=== PATIENT | female | born 1965 ===

== ENCOUNTER 2016-08-29 04:34 | Emergency (ER) | payer BC ==
[~2016-08-29] VITALS: Ht 170.2 cm; Wt 77.1 kg
[2016-08-29] MEDS ORDERED: NKM (04:42)
[2016-08-29] MEDS ORDERED: ACETAMINOPHEN-1 EAC1 ORAL (05:30)
[2016-08-29] MEDS ORDERED: IBUPROFEN600 MG ORAL (05:30)
[2016-08-29 05:33] VITALS: BP 123/69
--- NOTE | 2016-08-29 10:40 | Diagnostic Imaging Report ---
History: Pain status post fall. Technique: Frontal, lateral, and oblique views of the left wrist are provided. Comparison: No prior study is available for comparison. Findings: Overall bony mineralization is within normal limits. There is no evidence of acute fracture or dislocation. No significant erosive or arthritic change is noted. The soft tissues appear grossly normal. No significant joint effusion is noted. Impression: No evidence of acute fracture or dislocation.
--- NOTE | 2016-08-29 21:08 | Emergency Room Report ---
History of Present Illness General Chief Complaint: Upper Extremity Injury Source: Patient Present Illness HPI 51-year-old female presents ED complaining of left wrist pain. patient states patient mechanical trip and fall. Patient landed on her outstretched left wrist. Denies hitting her head or LOC. Notes pain and swelling to the left wrist. 8/10, sharp, nonradiating. No other aggravating or relieving factors. Unable to flex or extend due to pain and swelling. Denies any other injuries. Denies any other associated symptoms Allergies: Coded Allergies: No Known Allergies (Unverified , 08/29/16) Patient History Past Medical History: none Past Surgical History: none Pertinent Family History: none Social History: Denies: alcohol use, drug use, smoking Now: No Immunizations: UTD Reviewed Nursing Documentation: PMH: Agreed, PSxH: Agreed Nursing Documentation-PMH Past Medical History: No Stated History Review of Systems All Other Systems: negative except mentioned in HPI Physical Exam Vital Signs Date Time Temp Pulse Resp B/P Pulse Ox O2 Delivery O2 Flow Rate FiO2 08/29/16 04:39 98.1 91 18 123/69 96 Room Air Sp02 EP Interpretation: reviewed, normal General Appearance: no apparent distress, alert, GCS 15, non-toxic Head: normocephalic Eyes: bilateral eye PERRL, bilateral eye normal inspection ENT: normal ENT inspection Neck: normal inspection Respiratory: normal inspection Cardiovascular #1: normal inspection Gastrointestinal: normal inspection Rectal: deferred Genitourinary: no CVA tenderness Musculoskeletal: swelling - L wrist Neurologic: alert, oriented x3, responsive, motor strength/tone normal, sensory intact, speech normal Psychiatric: normal inspection Skin: normal inspection Lymphatic: normal inspection Procedures Splinting Splinting : Consent: Verbal Pre-Made Type: velcro Splint: wrist Pre-Proc Neuro Vasc Exam: normal Post-Proc Neuro Vasc Exam: normal Patient Tolerated: Well Complications: None Medical Decision Making Diagnostic Impression: Primary Impression: Wrist injury Qualified Codes: S69.92XA - Unspecified injury of left wrist, hand and finger( s), initial encounter ER Course Hospital Course 51-year-old F presents to ED complaining of L wrist pain s/p trip and fall Differential diagnoses include: Fracture, dislocation, sprain, contusion Clinical course Patient placed on stretcher. After initial history and physical, I ordered pain medications and Xrays of L hand/wrist Xrays prelim read shows no acute fracture/dislocation. placed in velcro wrist splint Diagnosis - wrist injury Stable and discharged to home with prescription for Motrin, Tylenol #3. apply ice, keep elevated. weight bear as tolerated. Followup with PMD. Return to ED if symptoms recur or worsen Other X-Ray Diagnostic Results Other X-Ray Diagnostic Results : X-Ray Ordered: L hand, L wrist EP Interpretation: Yes Findings: no fractures, no dislocation, no soft tissue swelling Number of Views: 3 Other Impression Left hand-No fracture, no dislocation, no soft tissue swelling Left wrist-No fracture, no dislocation, no soft tissue swelling Last Vital Signs Date Time Temp Pulse Resp B/P Pulse Ox O2 Delivery O2 Flow Rate FiO2 08/29/16 05:33 98.1 89 18 123/69 96 Room Air Status: improved Disposition: HOME, SELF-CARE Condition: Stable Scripts Acetaminophen With Codeine (T#3) (TYLENOL #3 TAB*) Y Tab 1 TAB ORAL Q8H Y for For Pain, #20 TAB Prov: MELLY JACKMAN M.D. 08/29/16 Ibuprofen* (MOTRIN*) 600 Mg Tablet 600 MG ORAL Q8H Y for For Pain, #30 TAB 0 Refills Prov: MELLY JACKMAN M.D. 08/29/16 Patient Instructions: Wrist Splint, [id number] MELLY JACKMAN M.D. Aug 29, 2016 21:08
--- NOTE | 2016-08-30 08:42 | Diagnostic Imaging Report ---
History: Pain status post fall. Technique: Frontal, lateral, and oblique views of the left hand are provided. Comparison: No prior study is available for comparison. Findings: Overall bony mineralization is within normal limits. There is no evidence of acute fracture or dislocation. No significant erosive or arthritic change is noted. The soft tissues appear grossly normal. No significant joint effusion is noted. Impression: No evidence of acute fracture or dislocation.
== END 2016-08-29 05:30 | disposition home or self-care (01) ==
LOC: EMR 05:02
DX: S69.82XA Other specified injuries of left wrist, hand and finger(s), initial encounter (principal); W01.0XXA Fall on same level from slipping, tripping and stumbling without subsequent striking against object, initial encounter; Y92.9 Unspecified place or not applicable
CPT/HCPCS: 29260; 99284